=== PATIENT | female | born 1955 | race African-American/Black ===

== ENCOUNTER 2017-04-14 12:09 | Inpatient (IN) | payer OTHER ==
[~2017-04-14] VITALS: Ht 162.6 cm; Wt 85.3 kg
[2017-04-14 13:08] LABS: HEMATOCRIT 22.9 % (36.0-46.0); HEMOGLOBIN 8.3 G/DL (11.9-15.5); MCH 29.2 PG (29.0-34.0); MCHC 36.2 G/DL (30.0-36.0); MCV 80.6 FL (83-99); PLATELET COUNT 405 K/uL (156-360); RBC DIS.WIDTH-CV 20.5 % (11.8-14.6); RBC DIS.WIDTH-SD 57.5 % (39-53); RED BLOOD COUNT 2.84 M/uL (3.80-5.20); WHITE BLOOD COUNT 8.7 K/uL (4.1-10.2)
[2017-04-14 13:17] LABS: BASOPHIL (%) 0 % (0-1); EOSINOPHIL (%) 0.1 % (0-5); IMMATURE GRANULOCYTE (%) 0.3 % (0.0-0.7); LYMPHOCYTE (%) 18.8 % (15-42); LYMPHOCYTE COUNT 1.6 K/uL (1.0-2.8); MONOCYTE (%) 3.3 % (3-12); MONOCYTE COUNT 0.3 K/uL (0-0.8); NEUTROPHIL (%) 77.5 % (45-76); NEUTROPHIL COUNT 6.7 K/uL (1.8-6.4)
[2017-04-14 13:19] LABS: ALBUMIN 1.8 g/dL (3.2-4.8); CHLORIDE 116 mEq/L (99-109); SODIUM 142 mEq/L (136-147)
[2017-04-14 13:20] LABS: MAGNESIUM 1.2 mg/dL (1.3-2.7)
[2017-04-14 13:21] LABS: GLUCOSE 129 mg/dL (70-99); TOTAL PROTEIN 5.8 g/dL (6.4-8.3)
[2017-04-14 13:23] LABS: TOTAL BILIRUBIN 0.8 mg/dL (0.0-1.0)
[2017-04-14 13:25] LABS: ALKALINE PHOSPHATASE 489 IU/L (3-129); CREATININE 1.5 mg/dL (0.6-1.3); GFR ESTIMATE (CALCULATED) 45 mL/min/
[2017-04-14 13:26] LABS: UREA NITROGEN (BUN) 27 mg/dL (9-23)
[2017-04-14 13:27] LABS: AST (GOT) 160 IU/L (2-34)
[2017-04-14 13:28] LABS: ALT (GPT) 127 IU/L (3-49)
[2017-04-14 13:29] LABS: TROP-I INTERPRETATION NEGATIVE; TROPONIN-I 0.01 ng/mL (0.0-0.30)
[2017-04-14 14:43] LABS: LIPASE 40 U/L (1.0-51.0)
[2017-04-14] MEDS ORDERED: NIFEDIPINE20 MG PO (17:05)
[2017-04-14] MEDS ORDERED: ASPIRIN81 M2 PO (17:05)
[2017-04-14] MEDS ORDERED: GLUCOPHAGE500 MG PO (17:06)
[2017-04-14] MEDS ORDERED: LIPITOR40 MG PO (17:06)
[2017-04-14] MEDS ORDERED: METOPROLOL TART25 MG PO (17:07)
[2017-04-14 17:20] LABS: ACETAMINOPHEN (TYLENOL) < 10 mcg/mL (10-30)
[2017-04-14 23:22] VITALS: BP 112/69
[2017-04-15 06:39] LABS: BASOPHIL (%) 0.1 % (0-1); EOSINOPHIL (%) 0.3 % (0-5); HEMOGLOBIN 7.4 G/DL (11.9-15.5); IMMATURE GRANULOCYTE (%) 0.4 % (0.0-0.7); LYMPHOCYTE (%) 19.4 % (15-42); LYMPHOCYTE COUNT 1.5 K/uL (1.0-2.8); MCH 28.8 PG (29.0-34.0); MCHC 35.2 G/DL (30.0-36.0); MCV 81.7 FL (83-99); MONOCYTE (%) 2.5 % (3-12); MONOCYTE COUNT 0.2 K/uL (0-0.8); NEUTROPHIL (%) 77.3 % (45-76); NEUTROPHIL COUNT 5.8 K/uL (1.8-6.4); PLATELET COUNT 403 K/uL (156-360); RBC DIS.WIDTH-CV 20.9 % (11.8-14.6); RBC DIS.WIDTH-SD 58.7 % (39-53); RED BLOOD COUNT 2.57 M/uL (3.80-5.20); WHITE BLOOD COUNT 7.5 K/uL (4.1-10.2)
[2017-04-15 07:30] VITALS: BP 112/61
[2017-04-15 07:52] LABS: FERRITIN 894 NG/ML (10-291)
[2017-04-15 07:56] LABS: ALBUMIN 1.7 G/DL (3.2-4.8); ALKALINE PHOSPHATASE 373 IU/L (3-129); ALT (GPT) 103 IU/L (3-49); AST (GOT) 118 IU/L (2-34); CHLORIDE 116 MEQ/L (99-109); CREATININE 1.5 MG/DL (0.6-1.3); DIRECT BILIRUBIN 0.3 mg/dL (0.0-0.3); GFR ESTIMATE (CALCULATED) 45 mL/min/; GLUCOSE 102 mg/dL (70-99); IRON 28 MCG/DL (35-150); MAGNESIUM 1.9 mg/dl (1.3-2.7); POTASSIUM 3.9 MEQ/L (3.7-5.4); SODIUM 145 MEQ/L (136-147); TOTAL BILIRUBIN 0.7 MG/DL (0.0-1.0); TOTAL PROTEIN 5.1 G/DL (6.4-8.3); UREA NITROGEN (BUN) 28 mg/dL (9-23)
[2017-04-15 07:58] LABS: FOLIC ACID (FOLATE) 5.2 NG/ML (5.0-22.0)
[2017-04-15 08:14] LABS: TRANSFERRIN (TIBC) < 75 mg/dL (215-380); TRANSFERRIN SATUR. 30 % (20-55)
[2017-04-15 11:51] LABS: HEPATITIS B SURFACE ANTIGEN Nonreactive; HEPATITIS C ANTIBODY Nonreactive
[2017-04-15 11:52] LABS: ANTI-HEPATITIS A VIRUS (IGM) Nonreactive
[2017-04-15 11:53] LABS: ANTI-HEPATITIS B CORE (IGM) Nonreactive
[2017-04-15 16:11] VITALS: BP 122/64
[2017-04-16 00:31] VITALS: BP 92/58
[2017-04-16 07:04] LABS: ALBUMIN 1.6 G/DL (3.2-4.8); ALKALINE PHOSPHATASE 427 IU/L (3-129); ALT (GPT) 129 IU/L (3-49); DIRECT BILIRUBIN 0.3 mg/dL (0.0-0.3); PHOSPHORUS 2.2 mg/dL (2.5-4.9); TOTAL BILIRUBIN 0.8 MG/DL (0.0-1.0); TOTAL PROTEIN 5.2 G/DL (6.4-8.3)
[2017-04-16 07:06] LABS: AST (GOT) 182 IU/L (2-34)
[2017-04-16 07:07] LABS: HEMATOCRIT 20.6 % (36.0-46.0); HEMOGLOBIN 7.4 G/DL (11.9-15.5); MCH 29.4 PG (29.0-34.0); MCHC 35.9 G/DL (30.0-36.0); MCV 81.7 FL (83-99); PLATELET COUNT 405 K/uL (156-360); RBC DIS.WIDTH-CV 21.4 % (11.8-14.6); RBC DIS.WIDTH-SD 61.6 % (39-53); RED BLOOD COUNT 2.52 M/uL (3.80-5.20); WHITE BLOOD COUNT 7.8 K/uL (4.1-10.2)
[2017-04-16 07:34] VITALS: BP 119/72
[2017-04-16 07:47] LABS: BASOPHIL (%) 0 % (0-1); EOSINOPHIL (%) 0.3 % (0-5); IMMATURE GRANULOCYTE (%) 0.6 % (0.0-0.7); LYMPHOCYTE (%) 16.3 % (15-42); LYMPHOCYTE COUNT 1.3 K/uL (1.0-2.8); MONOCYTE (%) 3.2 % (3-12); MONOCYTE COUNT 0.3 K/uL (0-0.8); NEUTROPHIL (%) 79.6 % (45-76); NEUTROPHIL COUNT 6.2 K/uL (1.8-6.4)
[2017-04-16 09:40] LABS: CHLORIDE 115 MEQ/L (99-109); CREATININE 1.4 MG/DL (0.6-1.3); GFR ESTIMATE (CALCULATED) 49 mL/min/; GLUCOSE 105 mg/dL (70-99); SODIUM 146 MEQ/L (136-147); UREA NITROGEN (BUN) 29 mg/dL (9-23)
[2017-04-16 16:31] VITALS: BP 174/80
[2017-04-16 23:42] VITALS: BP 85/67
[2017-04-17 06:29] LABS: BASOPHIL (%) 0.1 % (0-1); EOSINOPHIL (%) 0.1 % (0-5); HEMATOCRIT 20.3 % (36.0-46.0); HEMOGLOBIN 7.4 G/DL (11.9-15.5); IMMATURE GRANULOCYTE (%) 0.7 % (0.0-0.7); LYMPHOCYTE (%) 12.1 % (15-42); LYMPHOCYTE COUNT 1.1 K/uL (1.0-2.8); MCH 29.6 PG (29.0-34.0); MCHC 36.5 G/DL (30.0-36.0); MCV 81.2 FL (83-99); MONOCYTE (%) 1.9 % (3-12); MONOCYTE COUNT 0.2 K/uL (0-0.8); NEUTROPHIL (%) 85.1 % (45-76); NEUTROPHIL COUNT 7.5 K/uL (1.8-6.4); PLATELET COUNT 381 K/uL (156-360); RBC DIS.WIDTH-CV 21.5 % (11.8-14.6); RBC DIS.WIDTH-SD 60.3 % (39-53); WHITE BLOOD COUNT 8.9 K/uL (4.1-10.2)
[2017-04-17 06:30] LABS: INTER. NORMALIZED RATIO 1.2
[2017-04-17 06:51] LABS: ALBUMIN 1.7 G/DL (3.2-4.8); ALKALINE PHOSPHATASE 430 IU/L (3-129); ALT (GPT) 146 IU/L (3-49); AST (GOT) 169 IU/L (2-34); CHLORIDE 114 MEQ/L (99-109); CREATININE 1.6 MG/DL (0.6-1.3); DIRECT BILIRUBIN 0.4 mg/dL (0.0-0.3); GFR ESTIMATE (CALCULATED) 42 mL/min/; GLUCOSE 151 mg/dL (70-99); POTASSIUM 4.1 MEQ/L (3.7-5.4); SODIUM 144 MEQ/L (136-147); TOTAL BILIRUBIN 0.7 MG/DL (0.0-1.0); TOTAL PROTEIN 5.3 G/DL (6.4-8.3); UREA NITROGEN (BUN) 28 mg/dL (9-23)
[2017-04-17 08:00] VITALS: BP 102/58
[2017-04-17 15:41] VITALS: BP 97/57
[2017-04-17 23:58] VITALS: BP 95/55
[2017-04-18 05:38] LABS: HEMATOCRIT 21.5 % (36.0-46.0); HEMOGLOBIN 7.8 G/DL (11.9-15.5); MCH 29.9 PG (29.0-34.0); MCHC 36.3 G/DL (30.0-36.0); MCV 82.4 FL (83-99); PLATELET COUNT 376 K/uL (156-360); RBC DIS.WIDTH-CV 22.1 % (11.8-14.6); RBC DIS.WIDTH-SD 62.9 % (39-53); RED BLOOD COUNT 2.61 M/uL (3.80-5.20); WHITE BLOOD COUNT 10.6 K/uL (4.1-10.2)
[2017-04-18 06:20] LABS: ALBUMIN 1.8 G/DL (3.2-4.8); ALKALINE PHOSPHATASE 468 IU/L (3-129); ALT (GPT) 158 IU/L (3-49); AST (GOT) 172 IU/L (2-34); DIRECT BILIRUBIN 0.2 mg/dL (0.0-0.3); TOTAL BILIRUBIN 0.7 MG/DL (0.0-1.0); TOTAL PROTEIN 5.4 G/DL (6.4-8.3)
[2017-04-18 07:56] VITALS: BP 96/60
[2017-04-18 15:11] VITALS: BP 94/51
[2017-04-18 20:45] VITALS: BP 97/54
[2017-04-19] VITALS: BP 88/52
[2017-04-19 04:53] VITALS: BP 95/53
[2017-04-19 06:10] LABS: BASOPHIL (%) 0 % (0-1); EOSINOPHIL (%) 0.1 % (0-5); HEMOGLOBIN 7.4 G/DL (11.9-15.5); IMMATURE GRANULOCYTE (%) 0.5 % (0.0-0.7); LYMPHOCYTE (%) 12.5 % (15-42); LYMPHOCYTE COUNT 1.1 K/uL (1.0-2.8); MCHC 35.2 G/DL (30.0-36.0); MCV 82.4 FL (83-99); MONOCYTE (%) 1.7 % (3-12); MONOCYTE COUNT 0.2 K/uL (0-0.8); NEUTROPHIL (%) 85.2 % (45-76); NEUTROPHIL COUNT 7.5 K/uL (1.8-6.4); NRBC (%) 0.2 /100 WBC (0-0); PLATELET COUNT 371 K/uL (156-360); RBC DIS.WIDTH-CV 22.3 % (11.8-14.6); RBC DIS.WIDTH-SD 62.2 % (39-53); RED BLOOD COUNT 2.55 M/uL (3.80-5.20); WHITE BLOOD COUNT 8.8 K/uL (4.1-10.2)
[2017-04-19 06:39] LABS: ALBUMIN 1.7 G/DL (3.2-4.8); ALKALINE PHOSPHATASE 489 IU/L (3-129); ALT (GPT) 165 IU/L (3-49); AST (GOT) 164 IU/L (2-34); CHLORIDE 114 MEQ/L (99-109); GFR ESTIMATE (CALCULATED) 32 mL/min/; GLUCOSE 188 mg/dL (70-99); POTASSIUM 4.1 MEQ/L (3.7-5.4); SODIUM 145 MEQ/L (136-147); TOTAL BILIRUBIN 0.6 MG/DL (0.0-1.0); TOTAL PROTEIN 5.3 G/DL (6.4-8.3); UREA NITROGEN (BUN) 31 mg/dL (9-23)
[2017-04-19 08:00] VITALS: BP 102/58
[2017-04-19 10:32] LABS: APPEARANCE CLOUDY ((CLEAR)); BILIRUBIN NEGATIVE; BLOOD SMALL; GLUCOSE (STRIP) NEGATIVE; KETONES NEGATIVE; LEUKOCYTES MODERATE; NITRITE NEGATIVE; PROTEIN (STRIP) 100; SPECIFIC GRAVITY 1.015 (1.000-1.030)
[2017-04-19 10:38] LABS: COLOR YELLOW ((YELLOW))
[2017-04-19 10:52] LABS: BACTERIA 3+ /HPF; COARSE GRANULAR CASTS 0-5 /LPF; EPITHELIAL CELLS 2+ /HPF; MUCUS NONE SEEN /LPF; WHITE BLOOD CELLS 20-30 /HPF (0-5)
[2017-04-19 12:40] LABS: HCV RNA (IU/mL) <15 IU/mL (<15)
[2017-04-19 13:06] LABS: Estimated Average Glucose 123 mg/dL (70-123); HEMOGLOBIN A1c (GLYCOHEMOGLOB) 5.9 % HGB (Below 5.7)
[2017-04-19 16:28] VITALS: BP 100/59
[2017-04-19 16:49] LABS: ALPHA-1-ANTITRYPSIN+ 90 mg/dL (83-199)
[2017-04-19 20:20] VITALS: BP 128/60
[2017-04-19 23:21] VITALS: BP 113/66
[2017-04-20 06:12] LABS: BASOPHIL (%) 0 % (0-1); EOSINOPHIL (%) 0.2 % (0-5); HEMATOCRIT 21.7 % (36.0-46.0); HEMOGLOBIN 7.6 G/DL (11.9-15.5); IMMATURE GRANULOCYTE (%) 0.3 % (0.0-0.7); LYMPHOCYTE COUNT 0.9 K/uL (1.0-2.8); MCV 82.8 FL (83-99); MONOCYTE (%) 1.1 % (3-12); MONOCYTE COUNT 0.1 K/uL (0-0.8); NEUTROPHIL (%) 88.4 % (45-76); NEUTROPHIL COUNT 7.8 K/uL (1.8-6.4); NRBC (%) 0.3 /100 WBC (0-0); PLATELET COUNT 318 K/uL (156-360); RBC DIS.WIDTH-CV 22.6 % (11.8-14.6); RED BLOOD COUNT 2.62 M/uL (3.80-5.20); WHITE BLOOD COUNT 8.8 K/uL (4.1-10.2)
[2017-04-20 06:19] LABS: INTER. NORMALIZED RATIO 1.1
[2017-04-20 06:42] LABS: ALBUMIN 1.7 G/DL (3.2-4.8); ALKALINE PHOSPHATASE 522 IU/L (3-129); ALT (GPT) 169 IU/L (3-49); AST (GOT) 150 IU/L (2-34); DIRECT BILIRUBIN 0.2 mg/dL (0.0-0.3); TOTAL BILIRUBIN 0.6 MG/DL (0.0-1.0); TOTAL PROTEIN 5.7 G/DL (6.4-8.3)
[2017-04-20 07:25] VITALS: BP 102/56
[2017-04-20 07:26] VITALS: BP 135/71
[2017-04-20 11:15] LABS: CHLORIDE 118 MEQ/L (99-109); GFR ESTIMATE (CALCULATED) 32 mL/min/; GLUCOSE 172 mg/dL (70-99); POTASSIUM 3.8 MEQ/L (3.7-5.4); SODIUM 148 MEQ/L (136-147); UREA NITROGEN (BUN) 31 mg/dL (9-23)
[2017-04-20 11:24] LABS: HCV RNA (LOG IU/mL) <1.18 (<1.18)
[2017-04-20 16:00] VITALS: BP 110/63
[2017-04-20 22:34] VITALS: BP 93/53
[2017-04-21] VITALS (12 sets, daily range): BP systolic 83–106; BP diastolic 50–70
[2017-04-21 05:52] LABS: HEMATOCRIT 19.8 % (36.0-46.0); MCH 28.8 PG (29.0-34.0); MCHC 35.4 G/DL (30.0-36.0); MCV 81.5 FL (83-99); NRBC (%) 0.5 /100 WBC (0-0); PLATELET COUNT 265 K/uL (156-360); RBC DIS.WIDTH-CV 22.4 % (11.8-14.6); RBC DIS.WIDTH-SD 61.2 % (39-53); RED BLOOD COUNT 2.43 M/uL (3.80-5.20); WHITE BLOOD COUNT 8.1 K/uL (4.1-10.2)
[2017-04-21 06:17] LABS: ALBUMIN 1.5 G/DL (3.2-4.8); ALKALINE PHOSPHATASE 578 IU/L (3-129); ALT (GPT) 164 IU/L (3-49); AST (GOT) 166 IU/L (2-34); CHLORIDE 119 MEQ/L (99-109); CREATININE 2.2 MG/DL (0.6-1.3); DIRECT BILIRUBIN 0.2 mg/dL (0.0-0.3); GFR ESTIMATE (CALCULATED) 29 mL/min/; GLUCOSE 204 mg/dL (70-99); POTASSIUM 3.5 MEQ/L (3.7-5.4); SODIUM 149 MEQ/L (136-147); TOTAL BILIRUBIN 0.5 MG/DL (0.0-1.0); TOTAL PROTEIN 5.2 G/DL (6.4-8.3); UREA NITROGEN (BUN) 32 mg/dL (9-23)
[2017-04-21 06:35] LABS: BASOPHIL (%) 0 % (0-1); EOSINOPHIL (%) 0.1 % (0-5); IMMATURE GRANULOCYTE (%) 0.5 % (0.0-0.7); LYMPHOCYTE COUNT 0.8 K/uL (1.0-2.8); MONOCYTE (%) 1.2 % (3-12); MONOCYTE COUNT 0.1 K/uL (0-0.8); NEUTROPHIL (%) 88.2 % (45-76); NEUTROPHIL COUNT 7.1 K/uL (1.8-6.4)
[2017-04-21 14:09] LABS: STOOL OCCULT BLD 1ST SPECIMEN NEGATIVE
[2017-04-22] VITALS (19 sets, daily range): BP systolic 66–137; BP diastolic 49–98
[2017-04-22 04:46] LABS: UR CREATININE CONCENTRATION 153.3 MG/DL
[2017-04-22 10:12] LABS: BASOPHIL (%) 0.1 % (0-1); EOSINOPHIL (%) 0.4 % (0-5); HEMATOCRIT 25.6 % (36.0-46.0); IMMATURE GRANULOCYTE (%) 0.6 % (0.0-0.7); LYMPHOCYTE (%) 12.4 % (15-42); LYMPHOCYTE COUNT 1.2 K/uL (1.0-2.8); MCH 28.6 PG (29.0-34.0); MCHC 35.2 G/DL (30.0-36.0); MCV 81.3 FL (83-99); MONOCYTE (%) 2.3 % (3-12); MONOCYTE COUNT 0.2 K/uL (0-0.8); NEUTROPHIL (%) 84.2 % (45-76); NRBC (%) 0.5 /100 WBC (0-0); PLATELET COUNT 224 K/uL (156-360); RBC DIS.WIDTH-CV 18.9 % (11.8-14.6); RBC DIS.WIDTH-SD 51.5 % (39-53); WHITE BLOOD COUNT 9.6 K/uL (4.1-10.2)
[2017-04-22 10:13] LABS: RED BLOOD COUNT 3.15 M/uL (3.80-5.20)
[2017-04-22 10:22] LABS: INTER. NORMALIZED RATIO 1.3
[2017-04-22 10:37] LABS: C4 COMPLEMENT 48 MG/DL (10-40)
[2017-04-22 10:38] LABS: ALBUMIN 1.7 G/DL (3.2-4.8); ALKALINE PHOSPHATASE 478 IU/L (3-129); ALT (GPT) 122 IU/L (3-49); AST (GOT) 95 IU/L (2-34); CHLORIDE 120 MEQ/L (99-109); CREATININE 2.3 MG/DL (0.6-1.3); DIRECT BILIRUBIN 0.2 mg/dL (0.0-0.3); GFR ESTIMATE (CALCULATED) 28 mL/min/; POTASSIUM 3.8 MEQ/L (3.7-5.4); SODIUM 148 MEQ/L (136-147); TOTAL BILIRUBIN 0.5 MG/DL (0.0-1.0); UREA NITROGEN (BUN) 32 mg/dL (9-23)
[2017-04-22 10:49] LABS: GLUCOSE 95 mg/dL (70-99); TOTAL PROTEIN 4.4 G/DL (6.4-8.3)
[2017-04-22 12:10] LABS: A/G RATIO 0.6 (1.1-1.8); ALBUMIN 1.7 G/DL (3.4-5.0); GLOBULINS 2.7 G/DL (2.3-3.5); TOTAL PROTEIN 4.4 G/DL (6.4-8.2)
[2017-04-22 12:18] LABS: HIGH-SENS C-REACTIVE PROTEIN 7.65 MG/DL (0.02-0.20)
[2017-04-23] VITALS (26 sets, daily range): BP systolic 101–136; BP diastolic 61–90
[2017-04-23 04:38] LABS: BASOPHIL (%) 0 % (0-1); EOSINOPHIL (%) 0.2 % (0-5); HEMATOCRIT 30.7 % (36.0-46.0); IMMATURE GRANULOCYTE (%) 0.7 % (0.0-0.7); LYMPHOCYTE (%) 15.3 % (15-42); LYMPHOCYTE COUNT 1.9 K/uL (1.0-2.8); MCH 28.7 PG (29.0-34.0); MCHC 35.8 G/DL (30.0-36.0); MCV 80.2 FL (83-99); MONOCYTE (%) 2.7 % (3-12); MONOCYTE COUNT 0.3 K/uL (0-0.8); NEUTROPHIL (%) 81.1 % (45-76); NEUTROPHIL COUNT 9.9 K/uL (1.8-6.4); NRBC (%) 0.9 /100 WBC (0-0); PLATELET COUNT 232 K/uL (156-360); RBC DIS.WIDTH-CV 19.7 % (11.8-14.6); RBC DIS.WIDTH-SD 53.1 % (39-53); RED BLOOD COUNT 3.83 M/uL (3.80-5.20); WHITE BLOOD COUNT 12.3 K/uL (4.1-10.2)
[2017-04-23 04:50] LABS: ALBUMIN 2.2 g/dL (3.2-4.8); CHLORIDE 122 mEq/L (99-109); POTASSIUM 3.8 mEq/L (3.7-5.4); SODIUM 145 mEq/L (136-147)
[2017-04-23 04:51] LABS: MAGNESIUM 2.6 mg/dL (1.3-2.7)
[2017-04-23 04:53] LABS: GLUCOSE 221 mg/dL (70-99); TOTAL PROTEIN 5.4 g/dL (6.4-8.3)
[2017-04-23 04:54] LABS: TOTAL BILIRUBIN 0.6 mg/dL (0.0-1.0)
[2017-04-23 04:56] LABS: ALKALINE PHOSPHATASE 573 IU/L (3-129); CREATININE 2.2 mg/dL (0.6-1.3); GFR ESTIMATE (CALCULATED) 29 mL/min/; PHOSPHORUS 1.6 mg/dL (2.5-4.9)
[2017-04-23 04:57] LABS: UREA NITROGEN (BUN) 28 mg/dL (9-23)
[2017-04-23 04:58] LABS: AST (GOT) 79 IU/L (2-34); DIRECT BILIRUBIN 0.3 mg/dL (0.0-0.3)
[2017-04-23 04:59] LABS: ALT (GPT) 125 IU/L (3-49)
[2017-04-24] VITALS (23 sets, daily range): BP systolic 100–134; BP diastolic 68–95
[2017-04-24 04:53] LABS: BASOPHIL (%) 0.1 % (0-1); EOSINOPHIL (%) 0.6 % (0-5); EOSINOPHIL COUNT 0.1 K/uL (0-0.3); HEMATOCRIT 28.7 % (36.0-46.0); HEMOGLOBIN 10.1 G/DL (11.9-15.5); IMMATURE GRANULOCYTE (%) 0.7 % (0.0-0.7); LYMPHOCYTE (%) 15.6 % (15-42); LYMPHOCYTE COUNT 1.6 K/uL (1.0-2.8); MCH 28.5 PG (29.0-34.0); MCHC 35.2 G/DL (30.0-36.0); MCV 80.8 FL (83-99); MONOCYTE (%) 1.6 % (3-12); MONOCYTE COUNT 0.2 K/uL (0-0.8); NEUTROPHIL (%) 81.4 % (45-76); NEUTROPHIL COUNT 8.5 K/uL (1.8-6.4); NRBC (%) 0.6 /100 WBC (0-0); PLATELET COUNT 201 K/uL (156-360); RBC DIS.WIDTH-CV 20.1 % (11.8-14.6); RBC DIS.WIDTH-SD 54.6 % (39-53); RED BLOOD COUNT 3.55 M/uL (3.80-5.20); WHITE BLOOD COUNT 10.5 K/uL (4.1-10.2)
[2017-04-24 05:08] LABS: CHLORIDE 122 mEq/L (99-109); POTASSIUM 3.5 mEq/L (3.7-5.4); SODIUM 147 mEq/L (136-147)
[2017-04-24 05:27] LABS: MAGNESIUM 2.5 mg/dL (1.3-2.7)
[2017-04-24 05:28] LABS: GLUCOSE 159 mg/dL (70-99)
[2017-04-24 05:32] LABS: GFR ESTIMATE (CALCULATED) 32 mL/min/; PHOSPHORUS 1.7 mg/dL (2.5-4.9)
[2017-04-24 05:33] LABS: UREA NITROGEN (BUN) 25 mg/dL (9-23)
[2017-04-24 13:13] LABS: SCL-70 (SCLERODERMA) ANTIBODY 59 U/mL (0-99)
[2017-04-24 13:22] LABS: ALPHA-1 GLOBULIN 0.32 G/DL (0.15-0.40); ALPHA-2 GLOBULIN 0.37 G/DL (0.45-0.85); BETA-GLOBULIN 0.12 G/DL (0.65-1.15); GAMMA-GLOBULIN 1.79 G/DL (0.60-1.35)
[2017-04-24 19:33] LABS: MITOCHONDRIAL (M2) ANTIBODIES+ <=20.0 U (<=20.0)
[2017-04-25] VITALS (21 sets, daily range): BP systolic 85–124; BP diastolic 53–96
[2017-04-25 05:16] LABS: BASOPHIL (%) 0 % (0-1); EOSINOPHIL (%) 0.8 % (0-5); EOSINOPHIL COUNT 0.1 K/uL (0-0.3); HEMATOCRIT 27.4 % (36.0-46.0); HEMOGLOBIN 9.4 G/DL (11.9-15.5); IMMATURE GRANULOCYTE (%) 0.3 % (0.0-0.7); LYMPHOCYTE COUNT 1.2 K/uL (1.0-2.8); MCH 28.1 PG (29.0-34.0); MCHC 34.3 G/DL (30.0-36.0); MCV 81.8 FL (83-99); MONOCYTE (%) 1.6 % (3-12); MONOCYTE COUNT 0.1 K/uL (0-0.8); NEUTROPHIL (%) 82.3 % (45-76); NEUTROPHIL COUNT 6.4 K/uL (1.8-6.4); NRBC (%) 0.6 /100 WBC (0-0); PLATELET COUNT 143 K/uL (156-360); RBC DIS.WIDTH-CV 20.6 % (11.8-14.6); RBC DIS.WIDTH-SD 57.3 % (39-53); RED BLOOD COUNT 3.35 M/uL (3.80-5.20); WHITE BLOOD COUNT 7.7 K/uL (4.1-10.2)
[2017-04-25 05:49] LABS: CHLORIDE 120 MEQ/L (99-109); CREATININE 1.9 MG/DL (0.6-1.3); GFR ESTIMATE (CALCULATED) 34 mL/min/; GLUCOSE 137 mg/dL (70-99); MAGNESIUM 2.6 mg/dl (1.3-2.7); POTASSIUM 3.1 MEQ/L (3.7-5.4); SODIUM 148 MEQ/L (136-147); UREA NITROGEN (BUN) 26 mg/dL (9-23)
[2017-04-25 13:21] LABS: ANTI-SMOOTH MUSCLE (Actin)+ <20 U (<20)
[2017-04-25 20:02] LABS: GLOMERULAR BASEMENT MEMB ABY+ <1.0 AI (<1.0)
[2017-04-26] VITALS (19 sets, daily range): BP systolic 75–118; BP diastolic 46–75
[2017-04-26 01:06] LABS: QGTB-NIL 0.05 IU/mL (()); QUANTIFERON TB GOLD NEGATIVE (Negative); TB AG-NIL 0.02 IU/mL (())
[2017-04-26 05:47] LABS: HDL CHOLESTEROL 13 MG/DL (Desirable>=50); LDL CHOLESTEROL 110 mg/dL (Desirable<100); NON-HDL CHOLESTEROL 137 mg/dL (Desirable<160); TOTAL CHOLESTEROL 150 mg/dL (Desirable<200); TRIGLYCERIDES 133 MG/DL (Normal: <150)
[2017-04-26 11:20] LABS: MCH 28.2 PG (29.0-34.0); MCHC 34.5 G/DL (30.0-36.0); MCV 81.9 FL (83-99); NRBC (%) 0.8 /100 WBC (0-0); PLATELET COUNT 111 K/uL (156-360); RBC DIS.WIDTH-CV 21.3 % (11.8-14.6); RBC DIS.WIDTH-SD 59.4 % (39-53); RED BLOOD COUNT 3.54 M/uL (3.80-5.20); WHITE BLOOD COUNT 6.4 K/uL (4.1-10.2)
[2017-04-26 11:37] LABS: ERTH.SED.RATE 5 MM/HR (0-30)
[2017-04-26 11:38] LABS: CHLORIDE 124 MEQ/L (99-109); CREATININE 1.9 MG/DL (0.6-1.3); GFR ESTIMATE (CALCULATED) 34 mL/min/; GLUCOSE 99 mg/dL (70-99); POTASSIUM 3.5 MEQ/L (3.7-5.4); SODIUM 151 MEQ/L (136-147); UREA NITROGEN (BUN) 25 mg/dL (9-23)
[2017-04-27] VITALS (16 sets, daily range): BP systolic 73–119; BP diastolic 50–77
[2017-04-27 06:21] LABS: BASOPHIL (%) 0.2 % (0-1); EOSINOPHIL (%) 0.8 % (0-5); EOSINOPHIL COUNT 0.1 K/uL (0-0.3); HEMATOCRIT 28.4 % (36.0-46.0); HEMOGLOBIN 9.8 G/DL (11.9-15.5); IMMATURE GRANULOCYTE (%) 0.3 % (0.0-0.7); LYMPHOCYTE (%) 16.2 % (15-42); MCH 28.1 PG (29.0-34.0); MCHC 34.5 G/DL (30.0-36.0); MCV 81.4 FL (83-99); MONOCYTE (%) 1.5 % (3-12); MONOCYTE COUNT 0.1 K/uL (0-0.8); NEUTROPHIL COUNT 4.9 K/uL (1.8-6.4); NRBC (%) 0.7 /100 WBC (0-0); PLATELET COUNT 93 K/uL (156-360); RBC DIS.WIDTH-CV 21.4 % (11.8-14.6); RBC DIS.WIDTH-SD 58.9 % (39-53); RED BLOOD COUNT 3.49 M/uL (3.80-5.20)
[2017-04-27 06:26] LABS: ALBUMIN 1.6 G/DL (3.2-4.8); ALKALINE PHOSPHATASE 515 IU/L (3-129); ALT (GPT) 82 IU/L (3-49); AST (GOT) 103 IU/L (2-34); DIRECT BILIRUBIN 0.1 mg/dL (0.0-0.3); TOTAL BILIRUBIN 0.4 MG/DL (0.0-1.0); TOTAL PROTEIN 4.5 G/DL (6.4-8.3)
[2017-04-27 08:01] LABS: CHLORIDE 119 MEQ/L (99-109); CREATININE 1.9 MG/DL (0.6-1.3); GFR ESTIMATE (CALCULATED) 34 mL/min/; POTASSIUM 3.6 MEQ/L (3.7-5.4); SODIUM 147 MEQ/L (136-147); UREA NITROGEN (BUN) 23 mg/dL (9-23)
[2017-04-27 08:17] LABS: GLUCOSE 184 mg/dL (70-99)
[2017-04-27 15:10] LABS: Neutrophil Cytoplasmic Aby Negative (Negative)
[2017-04-27 22:45] LABS: Heparin Induced Plt Ab Negative (Negative)
[2017-04-28] VITALS (12 sets, daily range): BP systolic 80–106; BP diastolic 50–67
[2017-04-28 05:12] LABS: ALBUMIN 1.5 g/dL (3.2-4.8); CHLORIDE 116 mEq/L (99-109); POTASSIUM 3.8 mEq/L (3.7-5.4); SODIUM 144 mEq/L (136-147)
[2017-04-28 05:14] LABS: GLUCOSE 247 mg/dL (70-99)
[2017-04-28 05:18] LABS: GFR ESTIMATE (CALCULATED) 32 mL/min/; PHOSPHORUS 1.5 mg/dL (2.5-4.9)
[2017-04-28 05:19] LABS: UREA NITROGEN (BUN) 24 mg/dL (9-23)
[2017-04-28 08:55] LABS: UFH SRA Result Negative (Negative)
[2017-04-28 11:32] LABS: BASOPHIL (%) 0 % (0-1); EOSINOPHIL (%) 1.2 % (0-5); EOSINOPHIL COUNT 0.1 K/uL (0-0.3); HEMATOCRIT 27.1 % (36.0-46.0); HEMOGLOBIN 9.3 G/DL (11.9-15.5); IMMATURE GRANULOCYTE (%) 0.3 % (0.0-0.7); LYMPHOCYTE (%) 20.7 % (15-42); LYMPHOCYTE COUNT 1.3 K/uL (1.0-2.8); MCH 28.4 PG (29.0-34.0); MCHC 34.3 G/DL (30.0-36.0); MCV 82.9 FL (83-99); MONOCYTE (%) 1.8 % (3-12); MONOCYTE COUNT 0.1 K/uL (0-0.8); NEUTROPHIL COUNT 4.6 K/uL (1.8-6.4); RBC DIS.WIDTH-CV 22.2 % (11.8-14.6); RBC DIS.WIDTH-SD 63.7 % (39-53); RED BLOOD COUNT 3.27 M/uL (3.80-5.20); WHITE BLOOD COUNT 6.1 K/uL (4.1-10.2)
[2017-04-28 12:02] LABS: PLAT.SUFFICIENCY DECREASED; PLATELET CLUMPS PRESENT - PLATELET COUNTS APPEARS DECREASED; PLATELET COUNT UNABLE TO REPORT K/uL (156-360)
[2017-04-29] VITALS (17 sets, daily range): BP systolic 70–115; BP diastolic 45–65
[2017-04-29 06:18] LABS: BASOPHIL (%) 0.2 % (0-1); EOSINOPHIL (%) 0.9 % (0-5); HEMATOCRIT 27.7 % (36.0-46.0); HEMOGLOBIN 9.2 G/DL (11.9-15.5); IMMATURE GRANULOCYTE (%) 0.7 % (0.0-0.7); LYMPHOCYTE (%) 22.2 % (15-42); MCH 27.4 PG (29.0-34.0); MCHC 33.2 G/DL (30.0-36.0); MCV 82.4 FL (83-99); MONOCYTE (%) 2.4 % (3-12); MONOCYTE COUNT 0.1 K/uL (0-0.8); NEUTROPHIL (%) 73.6 % (45-76); NEUTROPHIL COUNT 3.4 K/uL (1.8-6.4); NRBC (%) 0.4 /100 WBC (0-0); RBC DIS.WIDTH-CV 21.9 % (11.8-14.6); RBC DIS.WIDTH-SD 63.6 % (39-53); RED BLOOD COUNT 3.36 M/uL (3.80-5.20); WHITE BLOOD COUNT 4.6 K/uL (4.1-10.2)
[2017-04-29 06:19] LABS: PLATELET COUNT 60 K/uL (156-360)
[2017-04-29 06:30] LABS: ALBUMIN 1.8 G/DL (3.2-4.8); ALKALINE PHOSPHATASE 521 IU/L (3-129); ALT (GPT) 78 IU/L (3-49); AST (GOT) 138 IU/L (2-34); CHLORIDE 115 MEQ/L (99-109); CREATININE 1.9 MG/DL (0.6-1.3); GFR ESTIMATE (CALCULATED) 34 mL/min/; GLUCOSE 185 mg/dL (70-99); POTASSIUM 3.9 MEQ/L (3.7-5.4); SODIUM 143 MEQ/L (136-147); TOTAL BILIRUBIN 0.4 MG/DL (0.0-1.0); TOTAL PROTEIN 4.1 G/DL (6.4-8.3); UREA NITROGEN (BUN) 23 mg/dL (9-23)
[2017-04-29 06:31] LABS: ALBUMIN 1.8 G/DL (3.2-4.8); CHLORIDE 115 MEQ/L (99-109); CREATININE 1.9 MG/DL (0.6-1.3); GFR ESTIMATE (CALCULATED) 34 mL/min/; GLUCOSE 184 mg/dL (70-99); PHOSPHORUS 1.6 mg/dL (2.5-4.9); POTASSIUM 3.9 MEQ/L (3.7-5.4); SODIUM 141 MEQ/L (136-147); UREA NITROGEN (BUN) 23 mg/dL (9-23)
[2017-04-30] VITALS (22 sets, daily range): BP systolic 68–143; BP diastolic 44–71
[2017-04-30 05:08] LABS: HEMOGLOBIN 8.5 G/DL (11.9-15.5); MCH 28.6 PG (29.0-34.0); MCHC 35.4 G/DL (30.0-36.0); MCV 80.8 FL (83-99); NRBC (%) 0.7 /100 WBC (0-0); RBC DIS.WIDTH-CV 21.8 % (11.8-14.6); RBC DIS.WIDTH-SD 60.9 % (39-53); RED BLOOD COUNT 2.97 M/uL (3.80-5.20); WHITE BLOOD COUNT 4.4 K/uL (4.1-10.2)
[2017-04-30 05:09] LABS: ALBUMIN 1.7 g/dL (3.2-4.8)
[2017-04-30 05:10] LABS: CHLORIDE 113 mEq/L (99-109); POTASSIUM 4.1 mEq/L (3.7-5.4); SODIUM 136 mEq/L (136-147)
[2017-04-30 05:15] LABS: PHOSPHORUS 1.3 mg/dL (2.5-4.9)
[2017-04-30 05:16] LABS: CREATININE 1.9 mg/dL (0.6-1.3); GFR ESTIMATE (CALCULATED) 34 mL/min/
[2017-04-30 05:27] LABS: GLUCOSE 231 mg/dL (70-99)
[2017-04-30 05:32] LABS: UREA NITROGEN (BUN) 26 mg/dL (9-23)
[2017-04-30 06:20] LABS: IMM.PLATELET FRACTION 7.3 (1-7); PLATELET COUNT 52 K/uL (156-360)
[2017-04-30 11:08] LABS: ALBUMIN 1.9 G/DL (3.2-4.8); ALKALINE PHOSPHATASE 545 IU/L (3-129); ALT (GPT) 65 IU/L (3-49); AST (GOT) 137 IU/L (2-34); DIRECT BILIRUBIN 0.1 mg/dL (0.0-0.3); TOTAL PROTEIN 4.3 G/DL (6.4-8.3)
[2017-04-30 11:10] LABS: TOTAL BILIRUBIN 0.3 MG/DL (0.0-1.0)
[2017-04-30 11:17] LABS: D-DIMER LATEX NEGATIVE
[2017-04-30 11:18] LABS: SCHISTOCYTES NONE SEEN
[2017-04-30 12:48] LABS: TREPONEMA ANTIBODY NEGATIVE (NEGATIVE)
[2017-04-30 13:45] LABS: APPEARANCE CLOUDY ((CLEAR)); BILIRUBIN NEGATIVE; BLOOD LARGE; COLOR YELLOW ((YELLOW)); GLUCOSE (STRIP) NEGATIVE; KETONES NEGATIVE; LEUKOCYTES MODERATE; NITRITE NEGATIVE; PROTEIN (STRIP) 30; SPECIFIC GRAVITY 1.006 (1.000-1.030)
[2017-04-30 13:52] LABS: BACTERIA 2+ /HPF; EPITHELIAL CELLS RARE /HPF; MUCUS NONE SEEN /LPF; RED BLOOD CELLS TNTC /HPF (0-5); UCUL ADDED? YES; WHITE BLOOD CELLS TNTC /HPF (0-5)
[2017-05-01] VITALS (24 sets, daily range): BP systolic 81–160; BP diastolic 49–96
[2017-05-01 05:08] LABS: BASOPHIL (%) 0.1 % (0-1); EOSINOPHIL (%) 1.1 % (0-5); EOSINOPHIL COUNT 0.1 K/uL (0-0.3); HEMATOCRIT 24.9 % (36.0-46.0); HEMOGLOBIN 8.8 G/DL (11.9-15.5); IMMATURE GRANULOCYTE (%) 0.5 % (0.0-0.7); LYMPHOCYTE (%) 22.3 % (15-42); LYMPHOCYTE COUNT 1.7 K/uL (1.0-2.8); MCH 28.3 PG (29.0-34.0); MCHC 35.3 G/DL (30.0-36.0); MCV 80.1 FL (83-99); MONOCYTE (%) 3.7 % (3-12); MONOCYTE COUNT 0.3 K/uL (0-0.8); NEUTROPHIL (%) 72.3 % (45-76); NEUTROPHIL COUNT 5.5 K/uL (1.8-6.4); NRBC (%) 0.7 /100 WBC (0-0); PLATELET COUNT 63 K/uL (156-360); RBC DIS.WIDTH-CV 21.6 % (11.8-14.6); RBC DIS.WIDTH-SD 60.9 % (39-53); RED BLOOD COUNT 3.11 M/uL (3.80-5.20); WHITE BLOOD COUNT 7.6 K/uL (4.1-10.2)
[2017-05-01 05:10] LABS: CHLORIDE 111 mEq/L (99-109); SODIUM 137 mEq/L (136-147)
[2017-05-01 05:11] LABS: GLUCOSE 300 mg/dL (70-99)
[2017-05-01 05:15] LABS: CREATININE 1.9 mg/dL (0.6-1.3); GFR ESTIMATE (CALCULATED) 34 mL/min/
[2017-05-01 05:16] LABS: UREA NITROGEN (BUN) 25 mg/dL (9-23)
[2017-05-02] VITALS (31 sets, daily range): BP systolic 93–125; BP diastolic 53–74
[2017-05-02 06:13] LABS: INTER. NORMALIZED RATIO 1.2
[2017-05-02 06:18] LABS: BASOPHIL (%) 0.2 % (0-1); EOSINOPHIL (%) 1.3 % (0-5); EOSINOPHIL COUNT 0.1 K/uL (0-0.3); IMMATURE GRANULOCYTE (%) 0.3 % (0.0-0.7); LYMPHOCYTE (%) 25.1 % (15-42); LYMPHOCYTE COUNT 1.6 K/uL (1.0-2.8); MCH 27.5 PG (29.0-34.0); MONOCYTE (%) 3.4 % (3-12); MONOCYTE COUNT 0.2 K/uL (0-0.8); NEUTROPHIL (%) 69.7 % (45-76); NEUTROPHIL COUNT 4.3 K/uL (1.8-6.4); NRBC (%) 0.5 /100 WBC (0-0); RBC DIS.WIDTH-CV 21.2 % (11.8-14.6); RBC DIS.WIDTH-SD 61.3 % (39-53); WHITE BLOOD COUNT 6.2 K/uL (4.1-10.2)
[2017-05-02 06:24] LABS: RED BLOOD COUNT 2.47 M/uL (3.80-5.20)
[2017-05-02 06:25] LABS: HEMOGLOBIN 6.8 G/DL (11.9-15.5)
[2017-05-02 06:27] LABS: ALBUMIN 2.6 G/DL (3.2-4.8); ALKALINE PHOSPHATASE 504 IU/L (3-129); ALT (GPT) 21 IU/L (3-49); AST (GOT) 98 IU/L (2-34); CHLORIDE 110 MEQ/L (99-109); CREATININE 2.1 MG/DL (0.6-1.3); DIRECT BILIRUBIN 0.2 mg/dL (0.0-0.3); GFR ESTIMATE (CALCULATED) 31 mL/min/; SODIUM 138 MEQ/L (136-147); TOTAL PROTEIN 4.3 G/DL (6.4-8.3); UREA NITROGEN (BUN) 26 mg/dL (9-23)
[2017-05-02 06:29] LABS: GLUCOSE 131 mg/dL (70-99); TOTAL BILIRUBIN 0.5 MG/DL (0.0-1.0)
[2017-05-02 06:53] LABS: IMM.PLATELET FRACTION 12.1 (1-7); PLAT.SUFFICIENCY DECREASED; PLATELET COUNT 47 K/uL (156-360)
[2017-05-02 07:31] LABS: HEMATOCRIT 20.4 % (36.0-46.0); HEMOGLOBIN 7.1 G/DL (11.9-15.5); MCV 81.6 FL (83-99)
[2017-05-02 10:41] LABS: HIV-1/2 AB/AG COMBO Nonreactive
[2017-05-03] VITALS (32 sets, daily range): BP systolic 95–140; BP diastolic 59–90
[2017-05-03 06:30] LABS: NRBC (%) 0.2 /100 WBC (0-0)
[2017-05-03 06:41] LABS: ALKALINE PHOSPHATASE 650 IU/L (3-129); ALT (GPT) 30 IU/L (3-49); AST (GOT) 184 IU/L (2-34); DIRECT BILIRUBIN 0.2 mg/dL (0.0-0.3); TOTAL BILIRUBIN 0.6 MG/DL (0.0-1.0); TOTAL PROTEIN 4.9 G/DL (6.4-8.3)
[2017-05-03 06:50] LABS: ALKALINE PHOSPHATASE 658 IU/L (3-129); ALT (GPT) 30 IU/L (3-49); AST (GOT) 183 IU/L (2-34); CHLORIDE 111 MEQ/L (99-109); CREATININE 1.9 MG/DL (0.6-1.3); GFR ESTIMATE (CALCULATED) 34 mL/min/; GLUCOSE 141 mg/dL (70-99); POTASSIUM 4.9 MEQ/L (3.7-5.4); SODIUM 140 MEQ/L (136-147); TOTAL BILIRUBIN 0.6 MG/DL (0.0-1.0); TOTAL PROTEIN 4.7 G/DL (6.4-8.3); UREA NITROGEN (BUN) 28 mg/dL (9-23)
[2017-05-03 06:56] LABS: BASOPHIL (%) 0.2 % (0-1); EOSINOPHIL COUNT 0.1 K/uL (0-0.3); HEMATOCRIT 35.6 % (36.0-46.0); IMMATURE GRANULOCYTE (%) 0.2 % (0.0-0.7); LYMPHOCYTE (%) 14.6 % (15-42); LYMPHOCYTE COUNT 1.3 K/uL (1.0-2.8); MCH 28.2 PG (29.0-34.0); MCHC 34.6 G/DL (30.0-36.0); MCV 81.7 FL (83-99); MONOCYTE (%) 3.6 % (3-12); MONOCYTE COUNT 0.3 K/uL (0-0.8); NEUTROPHIL (%) 80.4 % (45-76); NEUTROPHIL COUNT 7.2 K/uL (1.8-6.4); RBC DIS.WIDTH-CV 17.6 % (11.8-14.6); RBC DIS.WIDTH-SD 50.1 % (39-53)
[2017-05-03 06:59] LABS: IMM.PLATELET FRACTION 14.1 (1-7); PLAT.SUFFICIENCY VERY DECREASED; PLATELET COUNT 45 K/uL (156-360)
[2017-05-03 07:04] LABS: HEMOGLOBIN 12.3 G/DL (11.9-15.5); RED BLOOD COUNT 4.36 M/uL (3.80-5.20)
[2017-05-04 03:30] VITALS: BP 117/73
[2017-05-04 04:02] LABS: APPEARANCE CLOUDY ((CLEAR)); BILIRUBIN NEGATIVE; BLOOD LARGE; COLOR YELLOW ((YELLOW)); GLUCOSE (STRIP) NEGATIVE; KETONES NEGATIVE; LEUKOCYTES LARGE; NITRITE NEGATIVE; PROTEIN (STRIP) 30; SPECIFIC GRAVITY 1.011 (1.000-1.030)
[2017-05-04 04:27] LABS: EPITHELIAL CELLS 1+ /HPF; RED BLOOD CELLS 15-20 /HPF (0-5); WHITE BLOOD CELLS 20-30 /HPF (0-5)
[2017-05-04 04:28] LABS: BACTERIA 1+ /HPF; MUCUS 1+ /LPF
[2017-05-04 04:34] LABS: FINE GRANULAR CASTS 0-5 /LPF
[2017-05-04 07:19] LABS: BASOPHIL (%) 0.2 % (0-1); EOSINOPHIL (%) 0.2 % (0-5); HEMATOCRIT 36.3 % (36.0-46.0); HEMOGLOBIN 12.6 G/DL (11.9-15.5); IMMATURE GRANULOCYTE (%) 0.3 % (0.0-0.7); LYMPHOCYTE (%) 10.7 % (15-42); LYMPHOCYTE COUNT 1.3 K/uL (1.0-2.8); MCH 28.2 PG (29.0-34.0); MCHC 34.7 G/DL (30.0-36.0); MCV 81.2 FL (83-99); MONOCYTE (%) 3.6 % (3-12); MONOCYTE COUNT 0.5 K/uL (0-0.8); NEUTROPHIL COUNT 10.6 K/uL (1.8-6.4); NRBC (%) 0.2 /100 WBC (0-0); RBC DIS.WIDTH-CV 18.4 % (11.8-14.6); RBC DIS.WIDTH-SD 51.6 % (39-53); RED BLOOD COUNT 4.47 M/uL (3.80-5.20); WHITE BLOOD COUNT 12.5 K/uL (4.1-10.2)
[2017-05-04 07:20] LABS: INTER. NORMALIZED RATIO 0.9
[2017-05-04 07:37] LABS: ALBUMIN 2.3 G/DL (3.2-4.8); ALKALINE PHOSPHATASE 711 IU/L (3-129); ALT (GPT) 19 IU/L (3-49); CHLORIDE 114 MEQ/L (99-109); GFR ESTIMATE (CALCULATED) 32 mL/min/; GLUCOSE 186 mg/dL (70-99); POTASSIUM 5.3 MEQ/L (3.7-5.4); SODIUM 140 MEQ/L (136-147); TOTAL BILIRUBIN 0.5 MG/DL (0.0-1.0); TOTAL PROTEIN 4.3 G/DL (6.4-8.3); UREA NITROGEN (BUN) 31 mg/dL (9-23)
[2017-05-04 07:40] LABS: ANISOCYTOSIS 2+; AST (GOT) 91 IU/L (2-34); CHLORIDE 114 MEQ/L (99-109); GFR ESTIMATE (CALCULATED) 32 mL/min/; GLUCOSE 186 mg/dL (70-99); HYPOCHROMASIA 1+; IMM.PLATELET FRACTION 16.2 (1-7); MACROCYTES 1+; MICROCYTOSIS 1+; PLAT.SUFFICIENCY DECREASED; PLATELET COUNT 51 K/uL (156-360); POTASSIUM 5.3 MEQ/L (3.7-5.4); SODIUM 140 MEQ/L (136-147); TARGET CELLS 2+; UREA NITROGEN (BUN) 31 mg/dL (9-23)
[2017-05-04 08:38] VITALS: BP 116/65
[2017-05-04 08:48] LABS: BASE EXCESS -0.7 mEq/L (-3 to +3); BICARBONATE 23.4 mEq/L (22-26); CARBOXY HGB 2.4 % (0-5); METHEMOGLOBIN 1.7 % (0-1.5); PCO2 36 mm Hg (35-45); PO2 81 mm Hg (80-100); pH 7.42 (7.35-7.45)
[2017-05-04 08:49] LABS: COMMENTS - BLOOD GASES A+C+; DEVICE RA; SITE LR; TOTAL RESP RATE 16 resp/min
[2017-05-04 13:35] VITALS: BP 117/60
[2017-05-04 15:58] VITALS: BP 99/58
[2017-05-04 20:44] VITALS: BP 115/60
[2017-05-04 22:56] VITALS: BP 136/66
[2017-05-05 03:46] VITALS: BP 112/68
[2017-05-05 07:09] LABS: CHLORIDE 114 MEQ/L (99-109); CREATININE 2.1 MG/DL (0.6-1.3); GFR ESTIMATE (CALCULATED) 31 mL/min/; GLUCOSE 190 mg/dL (70-99); POTASSIUM 5.4 MEQ/L (3.7-5.4); SODIUM 142 MEQ/L (136-147); UREA NITROGEN (BUN) 36 mg/dL (9-23)
[2017-05-05 07:29] LABS: BASOPHIL (%) 0.2 % (0-1); EOSINOPHIL (%) 0.3 % (0-5); HEMATOCRIT 34.3 % (36.0-46.0); HEMOGLOBIN 11.4 G/DL (11.9-15.5); IMMATURE GRANULOCYTE (%) 0.4 % (0.0-0.7); LYMPHOCYTE (%) 14.1 % (15-42); LYMPHOCYTE COUNT 1.6 K/uL (1.0-2.8); MCH 27.5 PG (29.0-34.0); MCHC 33.2 G/DL (30.0-36.0); MCV 82.9 FL (83-99); MONOCYTE COUNT 0.4 K/uL (0-0.8); NEUTROPHIL COUNT 8.9 K/uL (1.8-6.4); PLATELET COUNT 61 K/uL (156-360); RBC DIS.WIDTH-CV 18.5 % (11.8-14.6); RBC DIS.WIDTH-SD 54.3 % (39-53); RED BLOOD COUNT 4.14 M/uL (3.80-5.20)
[2017-05-05 09:00] VITALS: BP 110/65
[2017-05-05 09:03] VITALS: BP 110/65
[2017-05-05 10:31] LABS: ALBUMIN 2.1 G/DL (3.2-4.8); ALT (GPT) 17 IU/L (3-49); AST (GOT) 78 IU/L (2-34); DIRECT BILIRUBIN 0.1 mg/dL (0.0-0.3); TOTAL BILIRUBIN 0.4 MG/DL (0.0-1.0); TOTAL PROTEIN 4.6 G/DL (6.4-8.3)
[2017-05-05 10:32] LABS: ALKALINE PHOSPHATASE 900 IU/L (3-129)
[2017-05-05 12:02] VITALS: BP 108/63
[2017-05-05 14:29] LABS: IMMUNOGLOBULIN G 1069 MG/DL (650-1600); IMMUNOGLOBULIN M 46 MG/DL (50-300); LACTATE DEHYDROGENASE 203 IU/L (20-246)
[2017-05-05 14:55] LABS: FERRITIN > 1500 NG/ML (10-291)
[2017-05-05 16:02] VITALS: BP 116/62
[2017-05-05 19:20] VITALS: BP 129/64
[2017-05-06 00:05] VITALS: BP 132/60
[2017-05-06 04:00] VITALS: BP 159/88
[2017-05-06 07:45] VITALS: BP 113/70
[2017-05-06 09:20] LABS: HEMATOCRIT 34.1 % (36.0-46.0); HEMOGLOBIN 11.5 G/DL (11.9-15.5); MCH 28.6 PG (29.0-34.0); MCHC 33.7 G/DL (30.0-36.0); MCV 84.8 FL (83-99); RBC DIS.WIDTH-CV 19.3 % (11.8-14.6); RBC DIS.WIDTH-SD 57.5 % (39-53); RED BLOOD COUNT 4.02 M/uL (3.80-5.20)
[2017-05-06 09:46] LABS: PLATELET COUNT 93 K/uL (156-360)
[2017-05-06 10:28] LABS: ALBUMIN 2.1 G/DL (3.2-4.8); ALKALINE PHOSPHATASE 978 IU/L (3-129); ALT (GPT) 27 IU/L (3-49); AST (GOT) 101 IU/L (2-34); CHLORIDE 115 MEQ/L (99-109); CREATININE 2.3 MG/DL (0.6-1.3); DIRECT BILIRUBIN 0.1 mg/dL (0.0-0.3); GFR ESTIMATE (CALCULATED) 28 mL/min/; GLUCOSE 195 mg/dL (70-99); MAGNESIUM 2.2 mg/dl (1.3-2.7); POTASSIUM 5.4 MEQ/L (3.7-5.4); SODIUM 143 MEQ/L (136-147); TOTAL BILIRUBIN 0.4 MG/DL (0.0-1.0); TOTAL PROTEIN 4.8 G/DL (6.4-8.3); UREA NITROGEN (BUN) 47 mg/dL (9-23)
[2017-05-06 12:20] VITALS: BP 116/69
[2017-05-06 12:38] LABS: C-REACTIVE PROTEIN 21.7 MG/L (0-10)
[2017-05-06 15:45] VITALS: BP 127/65
[2017-05-06 16:38] LABS: HAPTOGLOBIN+ 139 mg/dL (43-212)
[2017-05-06 20:45] VITALS: BP 162/91
[2017-05-07 00:34] VITALS: BP 130/78
[2017-05-07 03:36] VITALS: BP 123/76
[2017-05-07 05:54] LABS: BASOPHIL (%) 0.1 % (0-1); EOSINOPHIL (%) 0 % (0-5); HEMATOCRIT 36.2 % (36.0-46.0); HEMOGLOBIN 12.1 G/DL (11.9-15.5); IMMATURE GRANULOCYTE (%) 0.4 % (0.0-0.7); LYMPHOCYTE (%) 14.7 % (15-42); LYMPHOCYTE COUNT 1.6 K/uL (1.0-2.8); MCH 28.5 PG (29.0-34.0); MCHC 33.4 G/DL (30.0-36.0); MCV 85.4 FL (83-99); MONOCYTE (%) 4.2 % (3-12); MONOCYTE COUNT 0.5 K/uL (0-0.8); NEUTROPHIL (%) 80.6 % (45-76); NEUTROPHIL COUNT 8.7 K/uL (1.8-6.4); RBC DIS.WIDTH-CV 19.8 % (11.8-14.6); RBC DIS.WIDTH-SD 58.4 % (39-53); RED BLOOD COUNT 4.24 M/uL (3.80-5.20); WHITE BLOOD COUNT 10.8 K/uL (4.1-10.2)
[2017-05-07 05:55] LABS: PLATELET COUNT 164 K/uL (156-360)
[2017-05-07 06:30] LABS: ALBUMIN 2.3 G/DL (3.2-4.8); ALKALINE PHOSPHATASE 1034 IU/L (3-129); ALT (GPT) 46 IU/L (3-49); AST (GOT) 152 IU/L (2-34); CHLORIDE 114 MEQ/L (99-109); GFR ESTIMATE (CALCULATED) 32 mL/min/; GLUCOSE 171 mg/dL (70-99); POTASSIUM 5.4 MEQ/L (3.7-5.4); SODIUM 143 MEQ/L (136-147); TOTAL BILIRUBIN 0.3 MG/DL (0.0-1.0); TOTAL PROTEIN 5.7 G/DL (6.4-8.3); TRIGLYCERIDES 88 MG/DL (Normal: <150); UREA NITROGEN (BUN) 54 mg/dL (9-23)
[2017-05-07 08:09] VITALS: BP 122/68
[2017-05-07 12:35] VITALS: BP 112/68
[2017-05-07 16:00] VITALS: BP 121/72
[2017-05-07 20:12] VITALS: BP 123/70
[2017-05-08] VITALS (8 sets, daily range): BP systolic 112–136; BP diastolic 64–77
[2017-05-08 05:18] LABS: DRVVT Mixing Study Interp Not Indicated (()); dRVVT Screen 42 sec (<=45)
[2017-05-08 05:48] LABS: ADD PTT REFLEX? Y; PTT-LA 49 sec (<=40)
[2017-05-08 07:11] LABS: ALBUMIN 2.2 G/DL (3.2-4.8); ALKALINE PHOSPHATASE 839 IU/L (3-129); ALT (GPT) 42 IU/L (3-49); AST (GOT) 97 IU/L (2-34); CHLORIDE 113 MEQ/L (99-109); CREATININE 2.1 MG/DL (0.6-1.3); DIRECT BILIRUBIN 0.1 mg/dL (0.0-0.3); GFR ESTIMATE (CALCULATED) 31 mL/min/; GLUCOSE 152 mg/dL (70-99); SODIUM 143 MEQ/L (136-147); TOTAL PROTEIN 5.2 G/DL (6.4-8.3); UREA NITROGEN (BUN) 57 mg/dL (9-23)
[2017-05-08 07:12] LABS: HEMOGLOBIN 11.9 G/DL (11.9-15.5); MCH 27.7 PG (29.0-34.0); MCHC 32.2 G/DL (30.0-36.0); MCV 86.2 FL (83-99); PLATELET COUNT 196 K/uL (156-360); RBC DIS.WIDTH-CV 19.5 % (11.8-14.6); RBC DIS.WIDTH-SD 59.3 % (39-53); RED BLOOD COUNT 4.29 M/uL (3.80-5.20); WHITE BLOOD COUNT 7.6 K/uL (4.1-10.2)
[2017-05-08 07:20] LABS: POTASSIUM 6.1 MEQ/L (3.7-5.4); TOTAL BILIRUBIN 0.4 MG/DL (0.0-1.0)
[2017-05-08 07:41] LABS: BASOPHIL (%) 0 % (0-1); EOSINOPHIL (%) 0 % (0-5); IMMATURE GRANULOCYTE (%) 0.4 % (0.0-0.7); LYMPHOCYTE (%) 13.4 % (15-42); MONOCYTE (%) 1.6 % (3-12); MONOCYTE COUNT 0.1 K/uL (0-0.8); NEUTROPHIL (%) 84.6 % (45-76); NEUTROPHIL COUNT 6.5 K/uL (1.8-6.4)
[2017-05-08 13:51] LABS: CHLORIDE 113 MEQ/L (99-109); CREATININE 2.1 MG/DL (0.6-1.3); GFR ESTIMATE (CALCULATED) 31 mL/min/; GLUCOSE 186 mg/dL (70-99); POTASSIUM 5.6 MEQ/L (3.7-5.4); SODIUM 144 MEQ/L (136-147); UREA NITROGEN (BUN) 59 mg/dL (9-23)
[2017-05-08 16:52] LABS: CHLORIDE 114 MEQ/L (99-109); CREATININE 2.1 MG/DL (0.6-1.3); GFR ESTIMATE (CALCULATED) 31 mL/min/; POTASSIUM 5.2 MEQ/L (3.7-5.4); SODIUM 144 MEQ/L (136-147); UREA NITROGEN (BUN) 59 mg/dL (9-23)
[2017-05-08 16:55] LABS: GLUCOSE 64 mg/dL (70-99)
[2017-05-09 04:12] VITALS: BP 127/73
[2017-05-09 07:21] LABS: BASOPHIL (%) 0.1 % (0-1); EOSINOPHIL (%) 0.4 % (0-5); HEMATOCRIT 35.6 % (36.0-46.0); HEMOGLOBIN 11.3 G/DL (11.9-15.5); IMMATURE GRANULOCYTE (%) 0.4 % (0.0-0.7); LYMPHOCYTE (%) 16.1 % (15-42); LYMPHOCYTE COUNT 1.3 K/uL (1.0-2.8); MCH 27.5 PG (29.0-34.0); MCHC 31.7 G/DL (30.0-36.0); MCV 86.6 FL (83-99); MONOCYTE (%) 3.7 % (3-12); MONOCYTE COUNT 0.3 K/uL (0-0.8); NEUTROPHIL (%) 79.3 % (45-76); NEUTROPHIL COUNT 6.5 K/uL (1.8-6.4); RBC DIS.WIDTH-CV 19.1 % (11.8-14.6); RBC DIS.WIDTH-SD 58.3 % (39-53); RED BLOOD COUNT 4.11 M/uL (3.80-5.20); WHITE BLOOD COUNT 8.1 K/uL (4.1-10.2)
[2017-05-09 07:39] LABS: PLATELET COUNT 257 K/uL (156-360)
[2017-05-09 07:54] LABS: CHLORIDE 112 MEQ/L (99-109); CREATININE 2.1 MG/DL (0.6-1.3); GFR ESTIMATE (CALCULATED) 31 mL/min/; POTASSIUM 5.5 MEQ/L (3.7-5.4); SODIUM 143 MEQ/L (136-147); UREA NITROGEN (BUN) 58 mg/dL (9-23)
[2017-05-09 08:07] LABS: GLUCOSE 119 mg/dL (70-99)
[2017-05-09 08:32] VITALS: BP 111/84
[2017-05-09 11:49] VITALS: BP 126/62
[2017-05-09 15:59] VITALS: BP 127/78
[2017-05-09 20:07] VITALS: BP 123/80
[2017-05-10] VITALS: BP 115/67
[2017-05-10 02:13] LABS: AP Bone Isoenzyme 54 % (28-66); AP Intestine Isoenzyme 6 % (1-24); AP Liver Isoenzyme 40 % (25-69); AP Macrohepatic Isoenzyme 0 % (<=0); AP Placental Isoenzyme 0 % (<=0); Alkaline Phosphatase, Total 1067 U/L (33-130)
[2017-05-10 07:09] LABS: BASOPHIL (%) 0.1 % (0-1); EOSINOPHIL (%) 0.8 % (0-5); EOSINOPHIL COUNT 0.1 K/uL (0-0.3); HEMATOCRIT 33.7 % (36.0-46.0); IMMATURE GRANULOCYTE (%) 0.4 % (0.0-0.7); LYMPHOCYTE (%) 19.9 % (15-42); LYMPHOCYTE COUNT 1.4 K/uL (1.0-2.8); MCH 28.6 PG (29.0-34.0); MCHC 32.6 G/DL (30.0-36.0); MCV 87.5 FL (83-99); MONOCYTE (%) 4.1 % (3-12); MONOCYTE COUNT 0.3 K/uL (0-0.8); NEUTROPHIL (%) 74.7 % (45-76); NEUTROPHIL COUNT 5.3 K/uL (1.8-6.4); PLATELET COUNT 275 K/uL (156-360); RBC DIS.WIDTH-CV 19.3 % (11.8-14.6); RBC DIS.WIDTH-SD 59.4 % (39-53); RED BLOOD COUNT 3.85 M/uL (3.80-5.20); WHITE BLOOD COUNT 7.1 K/uL (4.1-10.2)
[2017-05-10 07:44] LABS: ALBUMIN 2.2 G/DL (3.2-4.8); ALT (GPT) 20 IU/L (3-49); CHLORIDE 115 MEQ/L (99-109); DIRECT BILIRUBIN 0.1 mg/dL (0.0-0.3); GFR ESTIMATE (CALCULATED) 32 mL/min/; GLUCOSE 121 mg/dL (70-99); POTASSIUM 5.2 MEQ/L (3.7-5.4); SODIUM 145 MEQ/L (136-147); TOTAL BILIRUBIN 0.4 MG/DL (0.0-1.0); TOTAL PROTEIN 5.2 G/DL (6.4-8.3); UREA NITROGEN (BUN) 53 mg/dL (9-23)
[2017-05-10 07:45] LABS: ALKALINE PHOSPHATASE 569 IU/L (3-129); AST (GOT) 35 IU/L (2-34)
[2017-05-10 07:57] VITALS: BP 131/76
[2017-05-10 11:36] VITALS: BP 113/74
[2017-05-10 15:30] VITALS: BP 125/78
[2017-05-10 20:30] VITALS: BP 127/76
[2017-05-11 00:02] VITALS: BP 131/77
[2017-05-11 04:05] VITALS: BP 111/74
[2017-05-11 07:09] LABS: BASOPHIL (%) 0.1 % (0-1); EOSINOPHIL (%) 0.4 % (0-5); HEMATOCRIT 34.1 % (36.0-46.0); HEMOGLOBIN 10.8 G/DL (11.9-15.5); IMMATURE GRANULOCYTE (%) 0.4 % (0.0-0.7); LYMPHOCYTE COUNT 1.5 K/uL (1.0-2.8); MCH 27.8 PG (29.0-34.0); MCHC 31.7 G/DL (30.0-36.0); MCV 87.9 FL (83-99); MONOCYTE (%) 4.6 % (3-12); MONOCYTE COUNT 0.4 K/uL (0-0.8); NEUTROPHIL (%) 77.5 % (45-76); RBC DIS.WIDTH-CV 18.7 % (11.8-14.6); RBC DIS.WIDTH-SD 58.4 % (39-53); RED BLOOD COUNT 3.88 M/uL (3.80-5.20); WHITE BLOOD COUNT 9.1 K/uL (4.1-10.2)
[2017-05-11 07:14] LABS: PLATELET COUNT 368 K/uL (156-360)
[2017-05-11 07:31] LABS: CHLORIDE 115 MEQ/L (99-109); CREATININE 1.9 MG/DL (0.6-1.3); GFR ESTIMATE (CALCULATED) 34 mL/min/; GLUCOSE 139 mg/dL (70-99); POTASSIUM 5.2 MEQ/L (3.7-5.4); SODIUM 146 MEQ/L (136-147); UREA NITROGEN (BUN) 51 mg/dL (9-23)
[2017-05-11 07:47] VITALS: BP 122/78
[2017-05-11 15:31] VITALS: BP 122/63
[2017-05-11 20:02] VITALS: BP 121/82
[2017-05-12 00:21] VITALS: BP 152/68
[2017-05-12 10:26] LABS: BASOPHIL (%) 0.1 % (0-1); EOSINOPHIL (%) 0.3 % (0-5); HEMATOCRIT 36.3 % (36.0-46.0); IMMATURE GRANULOCYTE (%) 0.4 % (0.0-0.7); LYMPHOCYTE (%) 17.2 % (15-42); LYMPHOCYTE COUNT 1.3 K/uL (1.0-2.8); MCH 29.2 PG (29.0-34.0); MCHC 33.1 G/DL (30.0-36.0); MCV 88.3 FL (83-99); MONOCYTE (%) 3.7 % (3-12); MONOCYTE COUNT 0.3 K/uL (0-0.8); NEUTROPHIL (%) 78.3 % (45-76); NEUTROPHIL COUNT 5.9 K/uL (1.8-6.4); PLATELET COUNT 382 K/uL (156-360); RBC DIS.WIDTH-CV 18.9 % (11.8-14.6); RBC DIS.WIDTH-SD 58.7 % (39-53); RED BLOOD COUNT 4.11 M/uL (3.80-5.20); WHITE BLOOD COUNT 7.5 K/uL (4.1-10.2)
[2017-05-12 10:44] LABS: ALBUMIN 2.1 G/DL (3.2-4.8); ALKALINE PHOSPHATASE 437 IU/L (3-129); ALT (GPT) 13 IU/L (3-49); AST (GOT) 23 IU/L (2-34); TOTAL BILIRUBIN 0.4 MG/DL (0.0-1.0); TOTAL PROTEIN 5.3 G/DL (6.4-8.3)
[2017-05-12 12:00] VITALS: BP 183/97
[2017-05-12 13:00] LABS: CHLORIDE 117 MEQ/L (99-109); CREATININE 1.9 MG/DL (0.6-1.3); GFR ESTIMATE (CALCULATED) 34 mL/min/; GLUCOSE 112 mg/dL (70-99); POTASSIUM 4.6 MEQ/L (3.7-5.4); SODIUM 148 MEQ/L (136-147); UREA NITROGEN (BUN) 49 mg/dL (9-23)
[2017-05-12 19:56] VITALS: BP 119/62
[2017-05-13] VITALS (7 sets, daily range): BP systolic 109–161; BP diastolic 55–81
[2017-05-14] VITALS (7 sets, daily range): BP systolic 117–145; BP diastolic 16–90
[2017-05-14 08:46] LABS: BASOPHIL (%) 0.1 % (0-1); EOSINOPHIL (%) 0.1 % (0-5); HEMATOCRIT 37.7 % (36.0-46.0); HEMOGLOBIN 11.8 G/DL (11.9-15.5); IMMATURE GRANULOCYTE (%) 0.4 % (0.0-0.7); LYMPHOCYTE (%) 19.4 % (15-42); LYMPHOCYTE COUNT 1.4 K/uL (1.0-2.8); MCH 27.7 PG (29.0-34.0); MCHC 31.3 G/DL (30.0-36.0); MCV 88.5 FL (83-99); MONOCYTE (%) 3.9 % (3-12); MONOCYTE COUNT 0.3 K/uL (0-0.8); NEUTROPHIL (%) 76.1 % (45-76); NEUTROPHIL COUNT 5.4 K/uL (1.8-6.4); PLATELET COUNT 476 K/uL (156-360); RBC DIS.WIDTH-CV 18.8 % (11.8-14.6); RBC DIS.WIDTH-SD 59.2 % (39-53); RED BLOOD COUNT 4.26 M/uL (3.80-5.20); WHITE BLOOD COUNT 7.2 K/uL (4.1-10.2)
[2017-05-14 10:52] LABS: ALBUMIN 2.3 G/DL (3.2-4.8); ALKALINE PHOSPHATASE 368 IU/L (3-129); ALT (GPT) 13 IU/L (3-49); AST (GOT) 19 IU/L (2-34); CHLORIDE 116 MEQ/L (99-109); CREATININE 1.9 MG/DL (0.6-1.3); DIRECT BILIRUBIN 0.1 mg/dL (0.0-0.3); GFR ESTIMATE (CALCULATED) 34 mL/min/; POTASSIUM 4.6 MEQ/L (3.7-5.4); SODIUM 149 MEQ/L (136-147); TOTAL BILIRUBIN 0.4 MG/DL (0.0-1.0); TOTAL PROTEIN 5.5 G/DL (6.4-8.3); UREA NITROGEN (BUN) 47 mg/dL (9-23)
[2017-05-14 11:04] LABS: GLUCOSE 212 mg/dL (70-99)
[2017-05-15 04:47] VITALS: BP 121/72
[2017-05-15 08:23] VITALS: BP 138/86
[2017-05-15 12:32] VITALS: BP 142/97
[2017-05-15 16:06] VITALS: BP 169/77
[2017-05-16 00:59] VITALS: BP 154/70
[2017-05-16 07:39] VITALS: BP 130/70
[2017-05-16 10:32] LABS: BASOPHIL (%) 0 % (0-1); EOSINOPHIL (%) 1.2 % (0-5); EOSINOPHIL COUNT 0.1 K/uL (0-0.3); HEMATOCRIT 39.8 % (36.0-46.0); HEMOGLOBIN 12.9 G/DL (11.9-15.5); IMMATURE GRANULOCYTE (%) 0.7 % (0.0-0.7); LYMPHOCYTE (%) 18.6 % (15-42); LYMPHOCYTE COUNT 1.4 K/uL (1.0-2.8); MCH 28.6 PG (29.0-34.0); MCHC 32.4 G/DL (30.0-36.0); MCV 88.2 FL (83-99); MONOCYTE (%) 4.4 % (3-12); MONOCYTE COUNT 0.3 K/uL (0-0.8); NEUTROPHIL (%) 75.1 % (45-76); NEUTROPHIL COUNT 5.7 K/uL (1.8-6.4); PLATELET COUNT 400 K/uL (156-360); RBC DIS.WIDTH-CV 18.9 % (11.8-14.6); RBC DIS.WIDTH-SD 58.7 % (39-53); RED BLOOD COUNT 4.51 M/uL (3.80-5.20); WHITE BLOOD COUNT 7.6 K/uL (4.1-10.2)
[2017-05-16 10:53] LABS: CHLORIDE 117 MEQ/L (99-109); CREATININE 1.7 MG/DL (0.6-1.3); GFR ESTIMATE (CALCULATED) 39 mL/min/; GLUCOSE 206 mg/dL (70-99); POTASSIUM 3.9 MEQ/L (3.7-5.4); SODIUM 150 MEQ/L (136-147); UREA NITROGEN (BUN) 41 mg/dL (9-23)
[2017-05-16 15:38] VITALS: BP 134/85
[2017-05-17 01:16] VITALS: BP 181/86
[2017-05-17 06:47] LABS: BASOPHIL (%) 0.2 % (0-1); EOSINOPHIL (%) 0.5 % (0-5); HEMATOCRIT 35.3 % (36.0-46.0); HEMOGLOBIN 11.4 G/DL (11.9-15.5); IMMATURE GRANULOCYTE (%) 0.8 % (0.0-0.7); LYMPHOCYTE (%) 17.6 % (15-42); LYMPHOCYTE COUNT 1.1 K/uL (1.0-2.8); MCH 28.2 PG (29.0-34.0); MCHC 32.3 G/DL (30.0-36.0); MCV 87.4 FL (83-99); MONOCYTE (%) 5.1 % (3-12); MONOCYTE COUNT 0.3 K/uL (0-0.8); NEUTROPHIL (%) 75.8 % (45-76); NEUTROPHIL COUNT 4.9 K/uL (1.8-6.4); PLATELET COUNT 354 K/uL (156-360); RBC DIS.WIDTH-CV 18.8 % (11.8-14.6); RBC DIS.WIDTH-SD 58.6 % (39-53); RED BLOOD COUNT 4.04 M/uL (3.80-5.20); WHITE BLOOD COUNT 6.4 K/uL (4.1-10.2)
[2017-05-17 07:09] LABS: ALBUMIN 2.1 G/DL (3.2-4.8); ALKALINE PHOSPHATASE 317 IU/L (3-129); ALT (GPT) 13 IU/L (3-49); AST (GOT) 24 IU/L (2-34); CHLORIDE 118 MEQ/L (99-109); CREATININE 1.6 MG/DL (0.6-1.3); DIRECT BILIRUBIN 0.1 mg/dL (0.0-0.3); GFR ESTIMATE (CALCULATED) 42 mL/min/; GLUCOSE 204 mg/dL (70-99); SODIUM 149 MEQ/L (136-147); TOTAL BILIRUBIN 0.4 MG/DL (0.0-1.0); UREA NITROGEN (BUN) 40 mg/dL (9-23)
[2017-05-17 07:25] VITALS: BP 186/82
[2017-05-17 16:25] VITALS: BP 140/62
[2017-05-17 21:44] VITALS: BP 131/66
[2017-05-18 00:12] VITALS: BP 99/48
[2017-05-18 08:19] VITALS: BP 133/71
[2017-05-19 07:11] VITALS: BP 154/73
[2017-05-20 01:00] VITALS: BP 106/59
[2017-05-20 07:23] VITALS: BP 135/56
[2017-05-20 15:08] VITALS: BP 126/61
[2017-05-20 23:29] VITALS: BP 128/64
[2017-05-21] VITALS (26 sets, daily range): BP systolic 66–160; BP diastolic 35–102
[2017-05-21 06:58] LABS: CHLORIDE 115 MEQ/L (99-109); CREATININE 1.6 MG/DL (0.6-1.3); GFR ESTIMATE (CALCULATED) 42 mL/min/; GLUCOSE 216 mg/dL (70-99); POTASSIUM 3.8 MEQ/L (3.7-5.4); SODIUM 147 MEQ/L (136-147); UREA NITROGEN (BUN) 37 mg/dL (9-23)
[2017-05-21 08:50] LABS: BASOPHIL (%) 0.2 % (0-1); EOSINOPHIL (%) 0.3 % (0-5); HEMATOCRIT 33.6 % (36.0-46.0); HEMOGLOBIN 10.9 G/DL (11.9-15.5); IMMATURE GRANULOCYTE (%) 1.3 % (0.0-0.7); LYMPHOCYTE (%) 14.4 % (15-42); LYMPHOCYTE COUNT 0.9 K/uL (1.0-2.8); MCH 28.5 PG (29.0-34.0); MCHC 32.4 G/DL (30.0-36.0); MONOCYTE (%) 3.5 % (3-12); MONOCYTE COUNT 0.2 K/uL (0-0.8); NEUTROPHIL (%) 80.3 % (45-76); NEUTROPHIL COUNT 4.9 K/uL (1.8-6.4); NRBC (%) 0.3 /100 WBC (0-0); RBC DIS.WIDTH-CV 19.1 % (11.8-14.6); RBC DIS.WIDTH-SD 59.7 % (39-53); RED BLOOD COUNT 3.82 M/uL (3.80-5.20); WHITE BLOOD COUNT 6.1 K/uL (4.1-10.2)
[2017-05-21 09:13] LABS: PLAT.SUFFICIENCY ADEQUATE
[2017-05-21 09:14] LABS: PLATELET COUNT 245 K/uL (156-360)
[2017-05-21 09:21] LABS: ALBUMIN 1.8 G/DL (3.2-4.8); ALKALINE PHOSPHATASE 254 IU/L (3-129); ALT (GPT) 13 IU/L (3-49); AST (GOT) 22 IU/L (2-34); DIRECT BILIRUBIN 0.1 mg/dL (0.0-0.3)
[2017-05-21 09:30] LABS: TOTAL BILIRUBIN 0.3 MG/DL (0.0-1.0); TOTAL PROTEIN 4.2 G/DL (6.4-8.3)
[2017-05-21 14:18] LABS: BASOPHIL (%) 0.1 % (0-1); EOSINOPHIL (%) 0.1 % (0-5); HEMATOCRIT 25.3 % (36.0-46.0); IMMATURE GRANULOCYTE (%) 1.5 % (0.0-0.7); LYMPHOCYTE (%) 13.1 % (15-42); LYMPHOCYTE COUNT 1.1 K/uL (1.0-2.8); MCHC 31.6 G/DL (30.0-36.0); MCV 88.5 FL (83-99); MONOCYTE (%) 3.3 % (3-12); MONOCYTE COUNT 0.3 K/uL (0-0.8); NEUTROPHIL (%) 81.9 % (45-76); NEUTROPHIL COUNT 6.7 K/uL (1.8-6.4); NRBC (%) 0.4 /100 WBC (0-0); PLATELET COUNT 220 K/uL (156-360); RBC DIS.WIDTH-CV 18.9 % (11.8-14.6); RBC DIS.WIDTH-SD 59.6 % (39-53); WHITE BLOOD COUNT 8.1 K/uL (4.1-10.2)
[2017-05-21 14:22] LABS: RED BLOOD COUNT 2.86 M/uL (3.80-5.20)
[2017-05-21 17:42] LABS: HEMATOCRIT 21.7 % (36.0-46.0); MCV 88.6 FL (83-99)
[2017-05-21 18:11] LABS: HEMOGLOBIN 6.9 G/DL (11.9-15.5)
[2017-05-21 19:01] LABS: CARBOXY HGB 1.7 % (0-5); METHEMOGLOBIN 1.4 % (0-1.5); PCO2 36 mm Hg (35-45); pH 7.45 (7.35-7.45)
[2017-05-21 19:02] LABS: COMMENTS - BLOOD GASES A+C+; DEVICE NC; O2 FLOW 6 L/MIN; PO2 258 mm Hg (80-100); SITE RR; TOTAL RESP RATE 18 resp/min
[2017-05-21 19:47] LABS: HEMATOCRIT 19.9 % (36.0-46.0); MCH 28.1 PG (29.0-34.0); MCHC 31.7 G/DL (30.0-36.0); MCV 88.8 FL (83-99); NRBC (%) 0.7 /100 WBC (0-0); PLATELET COUNT 196 K/uL (156-360); RBC DIS.WIDTH-CV 18.7 % (11.8-14.6); RBC DIS.WIDTH-SD 59.7 % (39-53); WHITE BLOOD COUNT 7.3 K/uL (4.1-10.2)
[2017-05-21 19:50] LABS: HEMOGLOBIN 6.3 G/DL (11.9-15.5); RED BLOOD COUNT 2.24 M/uL (3.80-5.20)
[2017-05-21 19:57] LABS: INTER. NORMALIZED RATIO 1.2
[2017-05-21 19:58] LABS: CHLORIDE 118 MEQ/L (99-109); CREATININE 1.6 MG/DL (0.6-1.3); GFR ESTIMATE (CALCULATED) 42 mL/min/; GLUCOSE 231 mg/dL (70-99); SODIUM 150 MEQ/L (136-147); UREA NITROGEN (BUN) 44 mg/dL (9-23)
[2017-05-21 20:00] LABS: PTT 40.1 SEC (25-37)
[2017-05-22] VITALS (18 sets, daily range): BP systolic 0–158; BP diastolic 0–114
[2017-05-22 00:16] LABS: HEMATOCRIT 29.5 % (36.0-46.0); MCV 85.8 FL (83-99)
[2017-05-22 05:07] LABS: BASOPHIL (%) 0 % (0-1); EOSINOPHIL (%) 0 % (0-5); HEMATOCRIT 30.9 % (36.0-46.0); HEMOGLOBIN 10.7 G/DL (11.9-15.5); IMMATURE GRANULOCYTE (%) 1.5 % (0.0-0.7); MCH 29.6 PG (29.0-34.0); MCHC 34.6 G/DL (30.0-36.0); MCV 85.4 FL (83-99); MONOCYTE (%) 2.2 % (3-12); MONOCYTE COUNT 0.2 K/uL (0-0.8); NEUTROPHIL (%) 82.3 % (45-76); NEUTROPHIL COUNT 5.6 K/uL (1.8-6.4); NRBC (%) 0.4 /100 WBC (0-0); PLATELET COUNT 140 K/uL (156-360); RBC DIS.WIDTH-CV 15.7 % (11.8-14.6); RBC DIS.WIDTH-SD 48.4 % (39-53); WHITE BLOOD COUNT 6.8 K/uL (4.1-10.2)
[2017-05-22 05:13] LABS: RED BLOOD COUNT 3.62 M/uL (3.80-5.20)
[2017-05-22 05:16] LABS: CHLORIDE 117 mEq/L (99-109); POTASSIUM 4.3 mEq/L (3.7-5.4); SODIUM 148 mEq/L (136-147)
[2017-05-22 05:17] LABS: MAGNESIUM 1.3 mg/dL (1.3-2.7)
[2017-05-22 05:18] LABS: GLUCOSE 173 mg/dL (70-99)
[2017-05-22 05:22] LABS: CREATININE 1.5 mg/dL (0.6-1.3); GFR ESTIMATE (CALCULATED) 45 mL/min/
[2017-05-22 05:23] LABS: UREA NITROGEN (BUN) 46 mg/dL (9-23)
[2017-05-22 12:33] LABS: HEMATOCRIT 17.5 % (36.0-46.0); MCV 87.9 FL (83-99)
[2017-05-22 12:36] LABS: HEMOGLOBIN 5.8 G/DL (11.9-15.5)
== END 2017-05-22 13:39 | DRG 871 ==
LOC: EME 12:09 → 5SOUTH 16:59 → 4WEST 16:59 → 5EAST 16:59 → EDOF 16:59 → 4EAST 16:59 → ENRESERV 17:04 → 5EAST 19:11 → ENRESERV 04-22 08:32 → 4WEST 04-22 08:34 → ENRESERV 04-28 02:33 → 4EAST 04-28 03:51 → ENRESERV 04-28 17:08 → 4WEST 04-28 17:48 → ENRESERV 04-29 15:55 → 4WEST 04-29 15:57 → 4EAST 04-29 19:54 → CANRESERV 04-30 06:05 → ENRESERV 04-30 06:05 → 4WEST 04-30 07:19 → ENRESERV 05-03 17:16 → 4WEST 05-03 23:10 → 4EAST 05-03 23:13 → ENRESERV 05-08 10:57 → 5SOUTH 05-08 12:38 → ENRESERV 05-21 19:46 → 4WEST 05-21 20:00
PROVIDERS: Emergency Medicine; Hospitalist; Internal Medicine; Internal Medicine Critical Care Medicine; Internal Medicine Gastroenterology; Internal Medicine Nephrology; Physician Assistant; Specialist; Surgery; Urology
DX: A41.9 Sepsis, unspecified organism (principal); B17.9 Acute viral hepatitis, unspecified; N17.0 Acute kidney failure with tubular necrosis; E44.0 Moderate protein-calorie malnutrition; L89.159 Pressure ulcer of sacral region, unspecified stage; G93.41 Metabolic encephalopathy; L89.329 Pressure ulcer of left buttock, unspecified stage; L89.153 Pressure ulcer of sacral region, stage 3; L89.319 Pressure ulcer of right buttock, unspecified stage; L89.313 Pressure ulcer of right buttock, stage 3; L89.323 Pressure ulcer of left buttock, stage 3; E87.1 Hypo-osmolality and hyponatremia; K72.90 Hepatic failure, unspecified without coma; E87.0 Hyperosmolality and hypernatremia; L89.899 Pressure ulcer of other site, unspecified stage; N18.3 Chronic kidney disease, stage 3 (moderate); I13.0 Hypertensive heart and chronic kidney disease with heart failure and stage 1 through stage 4 chronic kidney disease, or unspecified chronic kidney disease; I95.9 Hypotension, unspecified; I69.354 Hemiplegia and hemiparesis following cerebral infarction affecting left non-dominant side; E83.42 Hypomagnesemia; I50.9 Heart failure, unspecified; E83.39 Other disorders of phosphorus metabolism; R03.0 Elevated blood-pressure reading, without diagnosis of hypertension; I27.20 Pulmonary hypertension, unspecified; L89.150 Pressure ulcer of sacral region, unstageable; J18.9 Pneumonia, unspecified organism; B95.2 Enterococcus as the cause of diseases classified elsewhere; D50.9 Iron deficiency anemia, unspecified; R57.1 Hypovolemic shock; R09.02 Hypoxemia; N39.0 Urinary tract infection, site not specified; K75.81 Nonalcoholic steatohepatitis (NASH); E87.6 Hypokalemia; I46.2 Cardiac arrest due to underlying cardiac condition; E11.22 Type 2 diabetes mellitus with diabetic chronic kidney disease; E11.21 Type 2 diabetes mellitus with diabetic nephropathy; E87.5 Hyperkalemia; K71.6 Toxic liver disease with hepatitis, not elsewhere classified; M34.9 Systemic sclerosis, unspecified; K92.2 Gastrointestinal hemorrhage, unspecified; E87.2 Acidosis; I25.10 Atherosclerotic heart disease of native coronary artery without angina pectoris; E78.5 Hyperlipidemia, unspecified; D62 Acute posthemorrhagic anemia; L30.9 Dermatitis, unspecified; R21 Rash and other nonspecific skin eruption; I69.351 Hemiplegia and hemiparesis following cerebral infarction affecting right dominant side; D69.6 Thrombocytopenia, unspecified; R15.9 Full incontinence of feces; R57.8 Other shock; I21.9 Acute myocardial infarction, unspecified; I25.2 Old myocardial infarction; Z79.82 Long term (current) use of aspirin; Z79.84 Long term (current) use of oral hypoglycemic drugs; Z82.49 Family history of ischemic heart disease and other diseases of the circulatory system; Z87.01 Personal history of pneumonia (recurrent); I69.320 Aphasia following cerebral infarction
CPT/HCPCS: 31500; 36600; 70450; 70551; 71010; 71045; 74176; 74181; 76705; 77012; 80048; 80048 91; 80053; 80061; 80069; 80074; 80076; 81003; 81256 90; 82103 90; 82140; 82164 90; 82248; 82272; 82390; 82533 91; 82570; 82607; 82728; 82746; 82784; 82787 90; 82803; 82948; 83010 90; 83036; 83516 90; 83520 90; 83540; 83605; 83615; 83690; 83735; 83880; 83935; 84075 90; 84080 90; 84100; 84145 90; 84156; 84165; 84238 90; 84300; 84443; 84466; 84478; 84484; 85014; 85018; 85025; 85025 91; 85027; 85378; 85384; 85597 90; 85610; 85613 90; 85651; 85670 90; 85730; 85730 90; 86021 90; 86022 90; 86038; 86140; 86141; 86146 90; 86147 90; 86160; 86235; 86256 90; 86480 90; 86703; 86780; 86850; 86900; 86901; 86920; 87040; 87077; 87086; 87106; 87186; 87522 90; 87641; 88305; 88313; 90686; 92526 GN; 92610 GN; 92950; 93005; 93306; 94799; 97530 GP; 99281; 99285; A6214; C1751; C1753; C1755; C9113; G0480; J0171; J0282; J0610; J0696; J1170; J1644; J1815; J1940; J2185; J2354; J2405; J3010; J3475; J3480; J7030; J7040; J7042; J7050; J7070; J7512; P9016; P9047; Q0138